=== PATIENT | male | born 2000 | race Hispanic/Latino ===

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

== ENCOUNTER 2021-10-30 17:44 | Inpatient (IN) | payer MEDICAID, OTHER ==
[~2021-10-30 17:44] MED LIST changes: -DOXY1CAP60 PO; +DOXY50CA51 PO; +NAPR-837 PO; +RISP-8 PO; +ROBA500T PO; +TRAM50TA2 PO
--- OUTSIDE RECORDS SUMMARY | 2021-10-30 17:56 | CCD ---
Author Author [facility] Address Unknown Phone Unavailable Support Name Relationship Address Phone UE Next Of Kin Unknown Unavailable ST Next Of Kin Unknown Unavailable NONE, PT PER Next Of Kin - -, - - - YESENIA METZGER Next Of Kin [address] [place], [place] [id number] Re-disclosure Warning The records that you are about to access may contain information from federally-assisted alcohol or drug abuse programs. If such information is present, then the following federally mandated warning applies: This information has been disclosed to you from records protected by federal confidentiality rules (42 CFR part 2). The federal rules prohibit you from making any further disclosure of this information unless further disclosure is expressly permitted by the written consent of the person to whom it pertains or as otherwise permitted by 42 CFR part 2. A general authorization for the release of medical or other information is NOT sufficient for this purpose. The Federal rules restrict any use of the information to criminally investigate or prosecute any alcohol or drug abuse patient.The records that you are about to access may contain highly sensitive health information, the redisclosure of which is protected by Article 27-F of the [facility] Public Health law. If you continue you may have access to information: Regarding HIV / AIDS; Provided by facilities licensed or operated by the [facility] Office of Mental Health; or Provided by the [facility] Office for People With Developmental Disabilities. If such information is present, then the following [facility] mandated warning applies: This information has been disclosed to you from confidential records which are protected by state law. State law prohibits you from making any further disclosure of this information without the specific written consent of the person to whom it pertains, or as otherwise permitted by law. Any unauthorized further disclosure in violation of state law may result in a fine or residential sentence or both. A general authorization for the release of medical or other information is NOT sufficient authorization for further disc losure. Family History Family Member Name Family Member Gender Family Member Status Date o f Status Description Data Source(s) Unknown Condition [facility] Unknown Unknown Problem [facility] ([facility]) Encounters Encounter Providers Location Date Indications Data Source(s ) Outpatient 08/05/2021 03:52:21 PM EDT - 021 04:23:34 PM EDT [facility] ([facility]) Outpatient 08/05/2021 02:30:31 PM EDT [facility] ([facility]) Medications Medication Brand Name Start Date Product Form Dose Route Admi nistrative Instructions Pharmacy Instructions Status Indications Reaction Description Data Source(s) 2 mg 04/24/2020 12:00:00 AM EDT tablet 30 TAKE ONE TABLET BY MOUTH AT BEDTIME TAKE ONE TABLET BY MOUTH AT BEDTIME SOLD: 09/01/2020 [facility] Insurance Providers Payer name Policy type / Coverage type Policy ID Covered republican ID Covered republican's relationship to singh Policy Singh Plan Information [employer]OUNT emp [id number] Employee [id number] [employer] Commercial Insurance Co. [id number] Self [id number] [facility] COMMUNITY PLAN [facility] [id number] SP [id number] [facility] Communty Plan Medicaid [id number] Self [id number] [facility] COMMUNITY PLAN [id number] 18 [id number] [facility] COMMUNITY PLAN XIX [id number] 18 [id number] [facility] [id number] SP [id number] UN COMMUNITY PLAN [facility] [id number] SP [id number] [facility] Community Plan Medicaid [id number] Self [id number] MEDICAID [id number] SP [id number] [facility]([place]) O [id number] S [id number] Problems, Conditions, and Diagnoses No Information Surgeries/Procedures No Information Results ID Date Data Source [id number] 08/05/2021 04:15:00 PM EDT [facility] Name Value Range Interpretation Code Description Data Cecelia rce(s) Supporting Document(s) SARS-CoV-2 RNA Resp Ql LUCY+probe NOT DETECTED [facility] This lab was ordered by TINO rivas and reported by TINO Humphrey. ID Date Data Source [id number] 05/13/2021 12:00:00 AM EDT [facility] Name Value Range Interpretation Code Description Data Cecelia rce(s) Supporting Document(s) SARS-CoV2 Rapid Antigen Negative [facility] This [facility] and reported by [facility]. Procedure Social History No Information
[2021-10-30 20:05] LABS: HEMATOCRIT 50.6 % (42.0-52.0); HEMOGLOBIN 16.9 g/dl (13.5-17.5); MEAN CORPUSCULAR HEMOGLOBIN 29.8 pg (27.0-33.0); MEAN CORPUSCULAR HGB CONC 33.4 g/dl (32.0-36.5); MEAN CORPUSCULAR VOLUME 89.1 fl (80.0-96.0); PLATELET COUNT, AUTOMATED 281 10^3/uL (150-450); RED BLOOD COUNT 5.68 10^6/uL (4.30-6.10); WHITE BLOOD COUNT 10.1 10^3/uL (4.0-10.0)
[2021-10-30 20:44] LABS: ACETAMINOPHEN LEVEL < 2.0 UG/ML (10.0-30.0); ALBUMIN 4.6 GM/DL (3.2-5.2); ALT/SGPT 46 U/L (12-78); BILIRUBIN,DIRECT 0.2 MG/DL (0.0-0.2); BILIRUBIN,TOTAL 0.6 MG/DL (0.2-1.0); BLOOD UREA NITROGEN 14 MG/DL (7-18); CALCIUM LEVEL 10.6 MG/DL (8.5-10.1); CARBON DIOXIDE LEVEL 29 MEQ/L (21-32); CHLORIDE LEVEL 105 MEQ/L (98-107); CREATININE FOR GFR 1.16 MG/DL (0.70-1.30); ETHYL ALCOHOL (ETHANOL) < 0.003 % (0.000-0.010); GLOMERULAR FILTRATION RATE > 60.0 (>60); GLUCOSE, FASTING 117 MG/DL (70-100); POTASSIUM SERUM 4.2 MEQ/L (3.5-5.1); SALICYLATE LEVEL < 1.7 MG/DL (5.0-30.0); SODIUM LEVEL 140 MEQ/L (136-145); TOTAL PROTEIN 8.1 GM/DL (6.4-8.2)
[2021-10-30 20:59] LABS: AMPHETAMINES LEVEL URINE NEGATIVE (NEGATIVE); BARBITURATES URINE NEGATIVE (NEGATIVE); BENZODIAZEPINES URINE NEGATIVE (NEGATIVE); CANNABINOIDS URINE POSITIVE (NEGATIVE); COCAINE METABOLITE URINE NEGATIVE (NEGATIVE); METHADONE URINE NEGATIVE (NEGATIVE); OPIATES URINE NEGATIVE (NEGATIVE); PHENCYCLIDINE URINE NEGATIVE (NEGATIVE)
--- OUTSIDE RECORDS SUMMARY | 2021-10-30 21:12 | CCD ---
Author Author [facility] Organization [facility] Address Unknown Phone Unavailable Support Name Relationship Address Phone UE Next Of Kin Unknown Unavailable ST Next Of Kin Unknown Unavailable NONE, PT PER Next Of Kin - -, - - - YESENIA METZGER Next Of Kin [address], [address] [place], [place] [address] Re-disclosure Warning The records that you are [...] is protected by Article 27-F of the [facility] Public Health law. If you continue you may have access to information: Regarding HIV / AIDS; Provided by facilities licensed or operated by the [facility] Office of Mental Health; or Provided by the [facility] Office for People With Developmental Disabilities. If such information is present, then the following [facility] mandated warning applies: This information has been [...] law may result in a fine or nursing home sentence or both. A general authorization for the release of medical or other information is NOT sufficient authorization for further disc losure. Family History Family Member Name Family Member Gender Family Member Status Date o f Status Description Data Source(s) Unknown Condition [facility] Unknown Unknown Problem MEDENT ([facility]) Encounters Encounter Providers Location Date Indications Data Source(s ) Outpatient 08/05/2021 03:52:21 PM EDT - 021 04:23:34 PM EDT [facility] ([facility]) Outpatient 08/05/2021 02:30:31 PM EDT [facility] ([facility]) Medications Medication Brand Name Start Date Product Form Dose Route Admi nistrative Instructions Pharmacy Instructions Status Indications Reaction Description Data Source(s) 2 mg 04/24/2020 12:00:00 AM EDT tablet 30 TAKE ONE TABLET BY MOUTH AT BEDTIME TAKE ONE TABLET BY MOUTH AT BEDTIME SOLD: 09/01/2020 [facility] Insurance Providers Payer name Policy type / Coverage type Policy ID Covered libertarian ID Covered libertarian's relationship to singh Policy Singh Plan Information [employer] emp [id number] Employee [id number] [facility] Commercial Insurance Co. [id number] Self [id number] [facility] Communty Plan Medicaid [id number] Self [id number] REPLACED BY [facility] COMMUNITY PLAN [id number] 18 [id number] UN COMMUNITY PLAN XIX [id number] 18 [id number] [facility] [id number] SP [id number] [employer] COMMUNITY PLAN [facility] [id number] SP [id number] Community Health Community Plan Medicaid [id number] Self [id number] MEDICAID [id number] SP [id number] [facility] COMMUNITY [facility] [id number] SP [id number] [facility]([place]) O [id number] S [id number] Problems, Conditions, and Diagnoses No Information Surgeries/Procedures No Information Results ID Date Data Source [id number] 08/05/2021 04:15:00 PM EDT [facility] Name Value Range Interpretation Code Description Data Cecelia rce(s) Supporting Document(s) SARS-CoV-2 RNA Resp Ql LUCY+probe NOT DETECTED [facility] This lab was ordered by TINO rivas and reported by TINO Humphrey. ID Date Data Source [id number] 05/13/2021 12:00:00 AM EDT [facility] Name Value Range Interpretation Code Description Data Cecelia rce(s) Supporting Document(s) SARS-CoV2 Rapid Antigen Negative [facility] This lab was ordered by [facility] and reported by [facility]. Procedure Social History No Information
[2021-10-31] MEDS ORDERED: HOME MED LIST COMPLETE! XX SCH (10:35)
[2021-10-31 13:23] LABS: RSV AMPLIFICATION NEGATIVE (NEGATIVE)
[2021-10-31] MEDS ORDERED: MAALOX 30 ML SUSP *UDC PO PRN (14:55)
[2021-10-31] MEDS ORDERED: MOM 30ML SUSPENSION UDC PO PRN (14:55)
[2021-10-31] MEDS ORDERED: OLANZapine ORAL DISINTEGRATING TAB 5MG PO PRN (14:55)
[2021-10-31] MEDS ORDERED: traZODone 50 MG TAB PO PRN (14:55)
[2021-10-31] MEDS ORDERED: ACETAMINOPHEN TAB 650MG DOSE (2X325MG) PO PRN (14:55)
--- OUTSIDE RECORDS SUMMARY | 2021-10-31 15:23 | CCD ---
Author Author [facility] Organization [facility] Address Unknown Phone Unavailable Support Name Relationship Address Phone UE Next Of Kin Unknown Unavailable ST Next Of Kin Unknown Unavailable NONE, PT PER Next Of Kin - -, - - - YESENIA METZGER Next Of Kin [address] [place], [place] [address] Re-disclosure Warning The records that you are [...] is protected by Article 27-F of the [facility] Public Health law. If you continue you may have access to information: Regarding HIV / AIDS; Provided by facilities licensed or operated by the [facility] Office of Mental Health; or Provided by the [facility] Office for People With Developmental Disabilities. If such information is present, then the following [facility] mandated warning applies: This information has [...] f Status Description Data Source(s) Unknown Condition [facility] Unknown Unknown Problem [facility] ([facility]) Encounters Encounter Providers Location Date Indications Data Source(s ) Outpatient 08/05/2021 03:52:21 PM EDT - 021 04:23:34 PM EDT [facility] ([facility]) Outpatient 08/05/2021 02:30:31 PM EDT [facility] ([facility]) Medications Medication Brand Name Start Date Product Form Dose Route Admi nistrative Instructions Pharmacy Instructions Status Indications Reaction Description Data Source(s) 2 mg 04/24/2020 12:00:00 AM EDT tablet 30 TAKE ONE TABLET BY MOUTH AT BEDTIME TAKE ONE TABLET BY MOUTH AT BEDTIME SOLD: 09/01/2020 [facility] Insurance Providers Payer name Policy type / Coverage type Policy ID Covered green party ID Covered green party's relationship to singh Policy Singh Plan Information ES[employer]ATIONAL [employer]OUNT emp [id number] Employee [id number] [facility] Commercial Insurance Co. [id number] Self [id number] [facility] Communty Plan Medicaid [id number] Self [id number] [facility] COMMUNITY PLAN [id number] 18 [id number] UN COMMUNITY PLAN XIX [id number] [id number] [facility] [id number] SP [id number] UNHC COMMUNITY PLAN [facility] [id number] SP [id number] Replaced By [facility] Community Plan Medicaid [id number] Self [id number] MEDICAID [id number] SP [id number] [facility] COMMUNITY PLAN [facility] [id number] SP [id number] [facility]([place]) O [id number] S [id number] Problems, Conditions, and Diagnoses No Information Surgeries/Procedures No Information Results ID Date Data Source [id number] 08/05/2021 04:15:00 PM EDT [facility] Name Value Range Interpretation Code Description Data Cecelia rce(s) Supporting Document(s) SARS-CoV-2 RNA Resp Ql LUCY+probe NOT DETECTED [facility] This lab was ordered by TINO rivas and reported by TINO Humphrey. ID Date Data Source [id number] 05/13/2021 12:00:00 AM EDT [facility] Name Value Range Interpretation Code Description Data Cecelia rce(s) Supporting Document(s) SARS-CoV2 Rapid Antigen Negative [facility] This lab was ordered by [facility] and reported by [facility]. Procedure Social History No Information
--- NOTE | 2021-10-31 18:57 | ECGEPIP ---
[facility] - ED Test Date: 2021-10-31 Pat Name: SOULEYMANE GONZALEZ Department: Room: - Gender: Male Associate Artistic Director: [email or web address] : 2000 Requested By: DANNY Clarke Order Number: [id number] Reading MD: Lisa Molina Measurements Intervals [place] Rate: 67 P: 62 KS: 134 QRS: 83 QRSD: 86 T: 35 QT: 388 QTc: 409 Interpretive Statements Normal sinus rhythm with sinus arrhythmia similar 12/15/17 Electronically Signed on 10-31-2021 18:56:58 EST by Lisa Molina
[2021-10-31 21:37] VITALS: BP 142/82
[2021-11-01 06:10] VITALS: BP 134/87
[2021-11-01] MEDS ORDERED: INFLUENZA QUADRIVALENT PF VACCINE 0.5ML SYRINGE IM ONE (09:00)
[2021-11-01] MEDS: NICOTINE 21MG/24HR 1 EA TRANSDERMAL TD SCH ×2 (09:00→09:49)
[2021-11-01] MEDS: SERTRALINE HCL 25 MG TABLET PO SCH ×3 (09:45→09:49)
[2021-11-01] MEDS: OLANZapine 5 MG TAB PO SCH ×2 (11:47→22:17)
[2021-11-01] MEDS: DIVALPROEX 250 MG TAB PO SCH ×2 (11:47→22:17)
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
[2021-11-01 19:07] VITALS: BP 146/83
[2021-11-02 06:25] VITALS: BP 118/71
[2021-11-02] MEDS: OLANZapine 5 MG TAB PO SCH ×2 (08:26→21:13)
[2021-11-02] MEDS: NICOTINE 21MG/24HR 1 EA TRANSDERMAL TD SCH (08:26)
[2021-11-02] MEDS: DIVALPROEX 250 MG TAB PO SCH ×2 (08:26→21:13)
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
[2021-11-03 06:45] VITALS: BP 122/76
[2021-11-03] MEDS: OLANZapine 5 MG TAB PO SCH ×2 (08:42→20:21)
[2021-11-03] MEDS: DIVALPROEX 250 MG TAB PO SCH ×2 (08:42→20:21)
[2021-11-03] MEDS: NICOTINE 21MG/24HR 1 EA TRANSDERMAL TD SCH (08:43)
[2021-11-03 08:48] LABS: ALBUMIN 3.8 GM/DL (3.2-5.2); BILIRUBIN,DIRECT 0.2 MG/DL (0.0-0.2); BILIRUBIN,TOTAL 0.8 MG/DL (0.2-1.0); CHOLESTEROL RISK RATIO 2.825 (<5)
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
[2021-11-03 18:00] VITALS: BP 180/82
[2021-11-04 06:09] VITALS: BP 154/80
[2021-11-04] MEDS: NICOTINE 21MG/24HR 1 EA TRANSDERMAL TD SCH (09:00)
[2021-11-04] MEDS: OLANZapine 5 MG TAB PO SCH ×2 (09:16→21:34)
[2021-11-04] MEDS: DIVALPROEX 250 MG TAB PO SCH ×2 (09:16→21:34)
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
[2021-11-04 18:03] VITALS: BP 157/94
[2021-11-05 06:27] VITALS: BP 135/71
[2021-11-05] MEDS ORDERED: DEPA250T32 PO (08:42)
[2021-11-05] MEDS ORDERED: NICO21PAT TD (08:42)
[2021-11-05] MEDS ORDERED: OLAN1TAB16 PO (08:42)
[2021-11-05] MEDS: NICOTINE 21MG/24HR 1 EA TRANSDERMAL TD SCH (09:00)
[2021-11-05] MEDS: OLANZapine 5 MG TAB PO SCH (09:33)
[2021-11-05] MEDS: DIVALPROEX 250 MG TAB PO SCH (09:33)
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
[2021-11-07] MEDS ORDERED: NICO21PAT TD (12:33)
== END 2021-11-05 11:15 | disposition home or self-care (01) | DRG 754 ==
LOC: M ED 17:44 → M ED INP 10-31 14:54 → M PSY 10-31 21:20
PROVIDERS: ADMIT Student in an Organized Health Care Education/Training Program; ATTEND Student in an Organized Health Care Education/Training Program
DX: F32.9 Major depressive disorder, single episode, unspecified (principal); F12.90 Cannabis use, unspecified, uncomplicated

== ENCOUNTER 2022-01-02 16:05 | Inpatient (IN) | payer MEDICAID, OTHER ==
[~2022-01-02] VITALS: Ht 170.2 cm; Wt 86.8 kg
[~2022-01-02 16:05] MED LIST changes: +DEPA250T32 PO; +NICO21PAT TD; +OLAN1TAB16 PO
[2022-01-02 17:06] LABS: HEMATOCRIT 45.8 % (42.0-52.0); HEMOGLOBIN 15.6 g/dl (13.5-17.5); MEAN CORPUSCULAR HEMOGLOBIN 30.3 pg (27.0-33.0); MEAN CORPUSCULAR HGB CONC 34.1 g/dl (32.0-36.5); MEAN CORPUSCULAR VOLUME 88.9 fl (80.0-96.0); PLATELET COUNT, AUTOMATED 274 10^3/uL (150-450); RED BLOOD COUNT 5.15 10^6/uL (4.30-6.10); WHITE BLOOD COUNT 9.3 10^3/uL (4.0-10.0)
[2022-01-02 17:46] LABS: ACETAMINOPHEN LEVEL < 2.0 UG/ML (10.0-30.0); ALBUMIN 4.1 GM/DL (3.2-5.2); ALT/SGPT 33 U/L (12-78); BILIRUBIN,DIRECT 0.1 MG/DL (0.0-0.2); BILIRUBIN,TOTAL 0.4 MG/DL (0.2-1.0); BLOOD UREA NITROGEN 14 MG/DL (7-18); CALCIUM LEVEL 9.3 MG/DL (8.5-10.1); CARBON DIOXIDE LEVEL 29 MEQ/L (21-32); CHLORIDE LEVEL 107 MEQ/L (98-107); CREATININE FOR GFR 1.06 MG/DL (0.70-1.30); ETHYL ALCOHOL (ETHANOL) < 0.003 % (0.000-0.010); GLOMERULAR FILTRATION RATE > 60.0 (>60); GLUCOSE, FASTING 62 MG/DL (70-100); POTASSIUM SERUM 4.1 MEQ/L (3.5-5.1); SALICYLATE LEVEL < 1.7 MG/DL (5.0-30.0); SODIUM LEVEL 142 MEQ/L (136-145); TOTAL PROTEIN 7.7 GM/DL (6.4-8.2)
[2022-01-02 20:06] LABS: AMPHETAMINES LEVEL URINE NEGATIVE (NEGATIVE); BARBITURATES URINE NEGATIVE (NEGATIVE); BENZODIAZEPINES URINE NEGATIVE (NEGATIVE); CANNABINOIDS URINE POSITIVE (NEGATIVE); COCAINE METABOLITE URINE NEGATIVE (NEGATIVE); METHADONE URINE NEGATIVE (NEGATIVE); OPIATES URINE NEGATIVE (NEGATIVE); PHENCYCLIDINE URINE NEGATIVE (NEGATIVE)
[2022-01-02] MEDS: DIVALPROEX 250MG *ER* TAB PO SCH (21:00)
[2022-01-02] MEDS ORDERED: OLANZapine 5 MG TAB PO ONE (21:00)
[2022-01-02] MEDS ORDERED: OLAN1TAB16 PO (22:02)
[2022-01-02] MEDS ORDERED: MED REC COMMENT (22:04)
[2022-01-02] MEDS ORDERED: HOME MED LIST COMPLETE! XX SCH (22:05)
[2022-01-02] MEDS ORDERED: MOM 30ML SUSPENSION UDC PO PRN (22:05)
[2022-01-02] MEDS ORDERED: ACETAMINOPHEN TAB 650MG DOSE (2X325MG) PO PRN (22:05)
[2022-01-02] MEDS ORDERED: traZODone 50 MG TAB PO PRN (22:05)
[2022-01-02] MEDS ORDERED: MAALOX 30 ML SUSP *UDC PO PRN (22:05)
[2022-01-03 03:10] VITALS: BP 140/85
[2022-01-03] MEDS ORDERED: OLANZapine 5 MG TAB PO SCH (09:00)
[2022-01-03] MEDS: NICOTINE 21MG/24HR 1 EA TRANSDERMAL TD SCH (09:00)
[2022-01-03] MEDS ORDERED: NICOTINE 14 MG/24 HR TRANSDERMAL TD PRN (09:30)
[2022-01-03 18:38] VITALS: BP 135/66
[2022-01-03] MEDS: DIVALPROEX 250MG *ER* TAB PO SCH (21:08)
[2022-01-03] MEDS: OLANZapine 10 MG TAB PO SCH (21:08)
[2022-01-04 06:55] VITALS: BP 135/60
[2022-01-04 08:08] LABS: CHOLESTEROL RISK RATIO 3.255 (<5)
[2022-01-04] MEDS: NICOTINE 21MG/24HR 1 EA TRANSDERMAL TD SCH (09:00)
[2022-01-04 18:55] VITALS: BP 138/90
[2022-01-04] MEDS: DIVALPROEX 250MG *ER* TAB PO SCH (21:35)
[2022-01-04] MEDS: OLANZapine 10 MG TAB PO SCH (21:35)
[2022-01-05 07:24] VITALS: BP 121/58
[2022-01-05] MEDS: NICOTINE 21MG/24HR 1 EA TRANSDERMAL TD SCH (09:00)
[2022-01-05 17:19] VITALS: BP 150/78
[2022-01-05] MEDS: OLANZapine 10 MG TAB PO SCH (20:15)
[2022-01-05] MEDS: DIVALPROEX 250MG *ER* TAB PO SCH (20:15)
[2022-01-06 06:28] VITALS: BP 117/58
[2022-01-06 07:13] LABS: VALPROIC ACID (DEPAKOTE) 29.9 UG/ML (50.0-100.0)
[2022-01-06] MEDS: NICOTINE 21MG/24HR 1 EA TRANSDERMAL TD SCH (09:00)
[2022-01-06] MEDS ORDERED: DEPA250T2 PO (11:13)
[2022-01-06] MEDS ORDERED: OLAN1TAB20 PO (11:13)
[2022-01-06] MEDS ORDERED: DEPA500T2 PO (11:13)
[2022-01-06] MEDS ORDERED: NICO21PAT TD (11:13)
[2022-01-06] MEDS ORDERED: OLAN1TAB16 PO (11:13)
[2022-01-06 11:37] LABS: HIV 1&2 SCREEN CENTAUR NEGATIVE (NEGATIVE)
== END 2022-01-06 13:34 | disposition home or self-care (01) | DRG 753 ==
LOC: M ED 16:05 → M ED INP 22:02 → M PSY 01-03 04:05
PROVIDERS: ADMIT Student in an Organized Health Care Education/Training Program; ATTEND Student in an Organized Health Care Education/Training Program
DX: F31.9 Bipolar disorder, unspecified (principal); R45.851 Suicidal ideations; F12.90 Cannabis use, unspecified, uncomplicated; F17.200 Nicotine dependence, unspecified, uncomplicated; F32.9 Major depressive disorder, single episode, unspecified; Z79.899 Other long term (current) drug therapy

== ENCOUNTER 2023-02-12 13:39 | Inpatient (IN) | payer MEDICAID, OTHER ==
[~2023-02-12] VITALS: Ht 175.3 cm; Wt 89.4 kg
[~2023-02-12 13:39] MED LIST changes: +DEPA250T2 PO; +DEPA500T2 PO; +MED REC COMMENT; +OLAN1TAB20 PO
[2023-02-12 14:39] LABS: HEMATOCRIT 47.9 % (42.0-52.0); HEMOGLOBIN 16.5 g/dl (13.5-17.5); MEAN CORPUSCULAR HEMOGLOBIN 29.8 pg (27.0-33.0); MEAN CORPUSCULAR HGB CONC 34.4 g/dl (32.0-36.5); MEAN CORPUSCULAR VOLUME 86.5 fl (80.0-96.0); PLATELET COUNT, AUTOMATED 266 10^3/uL (150-450); RED BLOOD COUNT 5.54 10^6/uL (4.30-6.10); WHITE BLOOD COUNT 8.7 10^3/uL (4.0-10.0)
[2023-02-12 14:56] LABS: ETHYL ALCOHOL (ETHANOL) < 0.003 % (0.000-0.010)
[2023-02-12 14:57] LABS: ACETAMINOPHEN LEVEL < 2.0 UG/ML (10.0-20.0)
[2023-02-12 14:58] LABS: SALICYLATE LEVEL < 3.0 MG/DL (<30)
[2023-02-12 15:01] LABS: ALBUMIN 4.4 G/DL (3.2-5.2); ALKALINE PHOSPHATASE 64 U/L (46-116); ALT/SGPT 23 U/L (7.0-40); AST/SGOT 25 U/L (<34); BILIRUBIN,DIRECT 0.2 MG/DL (<0.4); BILIRUBIN,TOTAL 0.7 MG/DL (0.3-1.2); BLOOD UREA NITROGEN 12 MG/DL (9-23); CALCIUM LEVEL 9.7 MG/DL (8.5-10.1); CARBON DIOXIDE LEVEL 28 MMOL/L (20-31); CHLORIDE LEVEL 105 MMOL/L (98-107); CREATININE FOR GFR 0.97 MG/DL (0.70-1.30); GLOMERULAR FILTRATION RATE > 60.0 (>60); GLUCOSE, FASTING 93 MG/DL (60-100); POTASSIUM SERUM 4.3 MMOL/L (3.5-5.1); SODIUM LEVEL 140 MMOL/L (136-145); THYROID STIMULATING HORMONE 2.588 uIU/ML (0.55-4.78); TOTAL PROTEIN 7.4 G/DL (5.7-8.2)
[2023-02-12 15:19] LABS: AMPHETAMINES LEVEL URINE NEGATIVE (NEGATIVE); BARBITURATES URINE NEGATIVE (NEGATIVE); BENZODIAZEPINES URINE NEGATIVE (NEGATIVE)
[2023-02-12 15:20] LABS: CANNABINOIDS URINE NEGATIVE (NEGATIVE); COCAINE METABOLITE URINE NEGATIVE (NEGATIVE); METHADONE URINE NEGATIVE (NEGATIVE); OPIATES URINE NEGATIVE (NEGATIVE); PHENCYCLIDINE URINE NEGATIVE (NEGATIVE)
[2023-02-12] MEDS ORDERED: THERTAB21 PO (20:28)
[2023-02-12] MEDS ORDERED: IBUP200T46 PO (20:28)
[2023-02-12] MEDS ORDERED: HOME MED LIST COMPLETE! XX SCH (20:30)
[2023-02-12] MEDS ORDERED: MOM 30ML SUSPENSION UDC PO PRN (22:55)
[2023-02-12] MEDS ORDERED: ACETAMINOPHEN TAB 650MG DOSE (2X325MG) PO PRN (22:55)
[2023-02-12] MEDS ORDERED: OLANZapine ORAL DISINTEGRATING TAB 5MG PO PRN (22:55)
[2023-02-12] MEDS ORDERED: MAALOX 30 ML SUSP *UDC PO PRN (22:55)
[2023-02-13 00:10] VITALS: BP 143/80
[2023-02-13] MEDS: OLANZapine 10 MG TAB PO SCH ×2 (00:33→20:50)
[2023-02-13] MEDS: DIVALPROEX 250MG *ER* TAB PO SCH ×2 (00:33→20:50)
[2023-02-13] MEDS: NICOTINE 21MG/24HR 1 EA TRANSDERMAL TD SCH (09:00)
[2023-02-13 18:03] VITALS: BP 150/83
[2023-02-13] MEDS: traZODone 50 MG TAB PO PRN (20:50)
[2023-02-14 06:34] VITALS: BP 136/60
[2023-02-14] MEDS: NICOTINE 21MG/24HR 1 EA TRANSDERMAL TD SCH (09:00)
[2023-02-14 18:34] VITALS: BP 132/81
[2023-02-14] MEDS: DIVALPROEX 250MG *ER* TAB PO SCH (20:27)
[2023-02-14] MEDS: traZODone 50 MG TAB PO PRN (20:27)
[2023-02-14] MEDS: OLANZapine 10 MG TAB PO SCH (20:27)
[2023-02-15 06:26] VITALS: BP 130/83
[2023-02-15] MEDS: NICOTINE 21MG/24HR 1 EA TRANSDERMAL TD SCH (10:40)
[2023-02-15 19:00] VITALS: BP 113/60
[2023-02-15] MEDS: DIVALPROEX 250MG *ER* TAB PO SCH (21:52)
[2023-02-15] MEDS: OLANZapine 10 MG TAB PO SCH (21:52)
[2023-02-16 06:48] VITALS: BP 129/75
[2023-02-16] MEDS: NICOTINE 21MG/24HR 1 EA TRANSDERMAL TD SCH (08:30)
[2023-02-16 16:28] VITALS: BP 138/76
[2023-02-16] MEDS: DIVALPROEX 250MG *ER* TAB PO SCH (21:37)
[2023-02-16] MEDS: OLANZapine 10 MG TAB PO SCH (21:37)
[2023-02-17 06:44] VITALS: BP 150/84
[2023-02-17] MEDS: NICOTINE 21MG/24HR 1 EA TRANSDERMAL TD SCH (08:56)
[2023-02-17] MEDS ORDERED: DEPA250T2 PO (09:49)
[2023-02-17] MEDS ORDERED: NICO21PAT TD (09:49)
[2023-02-17] MEDS ORDERED: OLAN1TAB20 PO (09:49)
== END 2023-02-17 13:10 | disposition home or self-care (01) | DRG 750 ==
LOC: M ED 13:39 → M ED INP 22:55 → M PSY 23:49
PROVIDERS: ADMIT Student in an Organized Health Care Education/Training Program; ATTEND Student in an Organized Health Care Education/Training Program
DX: F25.0 Schizoaffective disorder, bipolar type (principal); Z91.119 Patient's noncompliance with dietary regimen due to unspecified reason

== ENCOUNTER → 2023-03-09 | Outpatient (REF) | payer MEDICAID, OTHER ==
[~2023-03-09] MED LIST changes: +IBUP200T46 PO; +THERTAB21 PO
[2023-03-09 18:37] LABS: APPEARANCE, URINE CLEAR (CLEAR); BACTERIA, URINE AUTO NEGATIVE (NEGATIVE); BILIRUBIN, URINE AUTO NEGATIVE (NEGATIVE); BLOOD, URINE BLOOD NEGATIVE (NEGATIVE); COLOR, URINE YELLOW (YELLOW); GLUCOSE, URINE (UA) AUTO NEGATIVE (NEGATIVE); KETONE, URINE AUTO NEGATIVE (NEGATIVE); LEUKOCYTE ESTERASE, URINE AUTO TRACE (NEGATIVE); NITRITE, URINE AUTO NEGATIVE (NEGATIVE); PROTEIN, URINE AUTO NEGATIVE (NEGATIVE); RBC, URINE AUTO 0 /HPF (0-3); SPECIFIC GRAVITY URINE AUTO 1.017 (1.002-1.035); SQUAMOUS EPITHELIAL CELL UR AU 0 /HPF (0-6); UROBILINOGEN, URINE AUTO 0.2 mg/dL (0.0-2.0); WBC, URINE AUTO 1 /HPF (0-3)
== END ==
LOC: M LAB REF 17:20
PROVIDERS: ATTEND Physician Assistant Medical
DX: N39.0 Urinary tract infection, site not specified (principal)

== ENCOUNTER 2024-12-07 18:32 | Inpatient (IN) | payer MEDICAID, OTHER, SELFPAY ==
[~2024-12-07] VITALS: Ht 172.7 cm; Wt 83.8 kg
[~2024-12-07 18:32] MED LIST changes: +DOXY50CA50 PO; -DOXY50CA51 PO; +RISP-105 PO; -RISP-8 PO
[2024-12-07 19:43] LABS: HEMATOCRIT 50.3 % (42.0-52.0); HEMOGLOBIN 17.6 g/dl (13.5-17.5); MEAN CORPUSCULAR HEMOGLOBIN 30.3 pg (27.0-33.0); MEAN CORPUSCULAR VOLUME 86.7 fl (80.0-96.0); PLATELET COUNT, AUTOMATED 262 10^3/uL (150-450); WHITE BLOOD COUNT 9.1 10^3/uL (4.0-10.0)
[2024-12-07 20:03] LABS: ETHYL ALCOHOL (ETHANOL) 0.006 % (0.000-0.010)
[2024-12-07 20:04] LABS: SALICYLATE LEVEL < 3.0 MG/DL (<30)
[2024-12-07 20:05] LABS: ALBUMIN 4.3 G/DL (3.2-5.2); ALKALINE PHOSPHATASE 66 U/L (40-129); ALT/SGPT 32 U/L (7.0-40); AST/SGOT 21 U/L (<34); BILIRUBIN,DIRECT 0.2 MG/DL (<0.4); BILIRUBIN,TOTAL 0.8 MG/DL (0.3-1.2); BLOOD UREA NITROGEN 18 MG/DL (9-23); CALCIUM LEVEL 9.8 MG/DL (8.5-10.1); CARBON DIOXIDE LEVEL 27 MMOL/L (20-31); CHLORIDE LEVEL 104 MMOL/L (98-107); CREATININE FOR GFR 1.05 MG/DL (0.70-1.30); GLOMERULAR FILTRATION RATE > 60.0 (>60); GLUCOSE, FASTING 78 MG/DL (60-100); POTASSIUM SERUM 4.5 MMOL/L (3.5-5.1); SODIUM LEVEL 140 MMOL/L (136-145); TOTAL PROTEIN 7.6 G/DL (5.7-8.2)
[2024-12-07 20:06] LABS: THYROID STIMULATING HORMONE 1.391 uIU/ML (0.55-4.78)
[2024-12-07 20:08] LABS: VALPROIC ACID (DEPAKOTE) < 3.0 UG/ML (50.0-100.0)
[2024-12-07 20:29] LABS: AMPHETAMINES LEVEL URINE NEGATIVE (NEGATIVE); BARBITURATES URINE NEGATIVE (NEGATIVE); BENZODIAZEPINES URINE NEGATIVE (NEGATIVE); CANNABINOIDS URINE NEGATIVE (NEGATIVE); COCAINE METABOLITE URINE NEGATIVE (NEGATIVE); METHADONE URINE NEGATIVE (NEGATIVE); OPIATES URINE NEGATIVE (NEGATIVE); PHENCYCLIDINE URINE NEGATIVE (NEGATIVE)
[2024-12-08] MEDS ORDERED: MED REC IN PROGRESS XX SCH (07:15)
[2024-12-08] MEDS ORDERED: HOME MED LIST COMPLETE! XX SCH (11:10)
[2024-12-08 13:20] VITALS: BP 116/71; TEMP 98; O2SAT 98
[2024-12-08] MEDS ORDERED: MOM 30ML SUSPENSION UDC PO PRN (15:15)
[2024-12-08] MEDS ORDERED: MAALOX 30 ML SUSP *UDC PO PRN (15:15)
[2024-12-08] MEDS ORDERED: diphenhydrAMINE 25MG CAP PO PRN (15:15)
[2024-12-08 17:15] VITALS: BP 134/85; TEMP 98.1; O2SAT 98
[2024-12-08] MEDS: traZODone 50 MG TAB PO PRN (21:18)
[2024-12-09 06:38] VITALS: BP_SYST 110; BP_SYST 114; BP_DIAS 56; BP_DIAS 72; TEMP 97.7; TEMP 97.9; O2SAT 97
[2024-12-10 06:42] VITALS: BP 124/57; TEMP 97.7; O2SAT 99
[2024-12-10 15:44] VITALS: BP 147/77; TEMP 98.6; O2SAT 99
[2024-12-11 06:47] VITALS: BP 138/70; TEMP 98.4; O2SAT 99
[2024-12-11] MEDS: IBUPROFEN 400MG TAB PO PRN (09:42)
[2024-12-11] MEDS: PALIPERIDONE 3MG ER TAB (INVEGA) PO SCH (11:16)
[2024-12-11 15:24] VITALS: BP 167/69; TEMP 98.1; O2SAT 99
[2024-12-11 18:07] VITALS: BP 142/68
[2024-12-12 06:53] VITALS: BP 157/64; TEMP 98.1; O2SAT 99
[2024-12-12] MEDS: ACETAMINOPHEN 325 MG TAB PO PRN (09:07)
[2024-12-12 15:56] VITALS: BP 153/83; TEMP 97.1; O2SAT 99
[2024-12-13] MEDS ORDERED: PALIPERIDONE PAL 234MG/1.5ML INJ (INVEGA)(FREE PSY INPT ONLY) IM ONE (09:05)
[2024-12-13 17:17] VITALS: BP 146/90; TEMP 98; O2SAT 100
[2024-12-14 06:22] VITALS: BP 123/67; TEMP 97.6; O2SAT 98
[2024-12-14] MEDS: PALIPERIDONE PAL 234MG/1.5ML INJ (INVEGA)(FREE PSY INPT ONLY) IM ONE (10:00)
[2024-12-15 06:28] VITALS: BP 144/70; TEMP 97.7; O2SAT 99
[2024-12-15] MEDS: NICOTINE 7 MG/24 HR TRANSDERMAL TD SCH (10:44)
[2024-12-15 14:56] VITALS: BP 148/87; TEMP 98.6; O2SAT 99
[2024-12-16 16:09] VITALS: BP 146/90; TEMP 97.5; O2SAT 98
[2024-12-17 06:35] VITALS: BP 122/61; TEMP 98; O2SAT 99
[2024-12-17 16:05] VITALS: BP 138/75; TEMP 97.7; O2SAT 99
[2024-12-18] MEDS: PALIPERIDONE PAL 156MG/1ML INJ(INVEGA)(FREE PSY INPT ONLY) IM ONE (11:17)
[2024-12-18] MEDS ORDERED: PALIPERIDONE PAL 156MG/1ML INJ(INVEGA)(FREE PSY INPT ONLY) IM ONE (12:00)
[2024-12-18] MEDS ORDERED: TRAZ-252 PO (12:01)
[2024-12-18] MEDS ORDERED: INVE234I IM (12:01)
== END 2024-12-18 14:26 | disposition home or self-care (01) | DRG 750 ==
LOC: M ED 18:32 → M ED INP 12-08 11:40 → M PSY 12-08 13:17
PROVIDERS: ADMIT Psychiatry & Neurology Psychiatry; ATTEND Psychiatry & Neurology Psychiatry
DX: F25.9 Schizoaffective disorder, unspecified (principal); Z91.148 Patient's other noncompliance with medication regimen for other reason; Z91.199 Patient's noncompliance with other medical treatment and regimen due to unspecified reason; F41.9 Anxiety disorder, unspecified; F17.200 Nicotine dependence, unspecified, uncomplicated; G47.00 Insomnia, unspecified; J45.909 Unspecified asthma, uncomplicated; F90.9 Attention-deficit hyperactivity disorder, unspecified type; F94.1 Reactive attachment disorder of childhood

== ENCOUNTER 2025-06-16 21:09 | Inpatient (IN) | payer MEDICAID, OTHER ==
[~2025-06-16] VITALS: Ht 175.3 cm; Wt 88.8 kg
[~2025-06-16 21:09] MED LIST changes: +DEPA250T PO; -DEPA250T2 PO; -DEPA250T32 PO; +DIVA-65 PO; +INVE234I IM; +TRAZ-252 PO
[2025-06-16 22:15] LABS: PLATELET COUNT, AUTOMATED 249 10^3/uL (150-450)
[2025-06-16 22:29] LABS: ETHYL ALCOHOL (ETHANOL) < 0.003 % (0.000-0.010)
[2025-06-16 22:30] LABS: ALT/SGPT 29 U/L (7.0-40); AMPHETAMINES LEVEL URINE NEGATIVE (NEGATIVE); AST/SGOT 30 U/L (<34); BARBITURATES URINE NEGATIVE (NEGATIVE); BENZODIAZEPINES URINE NEGATIVE (NEGATIVE); CALCIUM LEVEL 9.6 MG/DL (8.5-10.1); CANNABINOIDS URINE NEGATIVE (NEGATIVE); CARBON DIOXIDE LEVEL 25 MMOL/L (20-31); CHLORIDE LEVEL 105 MMOL/L (98-107); COCAINE METABOLITE URINE NEGATIVE (NEGATIVE); CREATININE FOR GFR 0.99 MG/DL (0.70-1.30); GLOMERULAR FILTRATION RATE > 90.0 (>60); METHADONE URINE NEGATIVE (NEGATIVE); OPIATES URINE NEGATIVE (NEGATIVE); PHENCYCLIDINE URINE NEGATIVE (NEGATIVE); POTASSIUM SERUM 4.2 MMOL/L (3.5-5.1); SALICYLATE LEVEL < 3.0 MG/DL (<30); SODIUM LEVEL 143 MMOL/L (136-145)
[2025-06-17] MEDS ORDERED: NICOTINE 14 MG/24 HR TRANSDERMAL TD SCH (09:00)
[2025-06-17] MEDS ORDERED: HOME MED LIST COMPLETE! XX SCH (09:35)
[2025-06-17] MEDS ORDERED: IBUPROFEN 400 MG TAB PO PRN (10:10)
[2025-06-17] MEDS ORDERED: MOM 30 ML SUSPENSION UDC PO PRN (10:10)
[2025-06-17] MEDS ORDERED: HALOPERIDOL 5 MG TAB PO PRN (10:10)
[2025-06-17] MEDS ORDERED: ACETAMINOPHEN 325 MG TAB PO PRN (10:10)
[2025-06-17] MEDS ORDERED: LORazepam 1 MG TAB PO PRN (10:10)
[2025-06-17] MEDS ORDERED: OLANZapine 5 MG TAB PO PRN (10:10)
[2025-06-17] MEDS ORDERED: MAALOX 30 ML SUSP *UDC PO PRN (10:10)
[2025-06-17 10:40] VITALS: BP 134/82; TEMP 97.4
[2025-06-17 14:32] VITALS: BP 136/78; TEMP 98.1; O2SAT 98
[2025-06-17] MEDS: NICOTINE 21 MG/24 HR 1 EA TRANSDERMAL TD SCH (16:08)
[2025-06-17] MEDS: AMOXICILLIN 875 MG TAB PO ONE (16:12)
[2025-06-17] MEDS: traZODone 50 MG TAB PO PRN (21:09)
[2025-06-17] MEDS: CARBAMIDE PEROXIDE 6.5% OTIC SOLN 15 ML AU SCH (21:38)
[2025-06-18 06:32] VITALS: BP 117/55; TEMP 97.3; O2SAT 99
[2025-06-18] MEDS: OLANZapine 5 MG TAB PO SCH (20:48)
[2025-06-19] MEDS ORDERED: OLAN1TAB16 PO (06:16)
== END 2025-06-19 12:51 | disposition home or self-care (01) | DRG 750 ==
LOC: M ED 21:09 → M ED INP 06-17 10:10 → M PSY 06-17 10:39
PROVIDERS: ADMIT Internal Medicine; ATTEND Internal Medicine
DX: F25.9 Schizoaffective disorder, unspecified (principal); Z91.148 Patient's other noncompliance with medication regimen for other reason; R45.851 Suicidal ideations; F41.9 Anxiety disorder, unspecified; G47.00 Insomnia, unspecified